=== PATIENT | female | born 1935 ===

== ENCOUNTER 2021-05-18 05:10 | Day surgery (SDC) | payer OTHER ==
[~2021-05-18 05:10] MED LIST: LOTREL 10-40 M1 EACH PO
[2021-05-18] MEDS ORDERED: MACROBID 100 M100 MG PO (09:29)
== END 2021-05-18 12:45 | disposition home or self-care (01) ==
LOC: CIR.AMB 05:10
PROVIDERS: ATTEND Obstetrics & Gynecology Gynecology
DX: N81.6 Rectocele (principal); N81.5 Vaginal enterocele; Z20.822 Contact with and (suspected) exposure to COVID-19